=== PATIENT | male | born 1965 | race Caucasian/White ===

== ENCOUNTER 2017-01-10 08:22 | Emergency (ER) | payer MEDICAID, OTHER ==
[~2017-01-10] VITALS: Ht 185.4 cm; Wt 65.8 kg
[2017-01-10 08:22] VITALS: BP 135/68; PULSE 85; RESP 16; TEMP 98.2; O2SAT 100
--- NOTE | 2017-01-10 08:22 | NUR ---
Patient to ER bed 3 to gown for evaluation by ART rn. Side rails up. Report given to me.
--- NOTE | 2017-01-10 08:25 | NUR ---
BRENT Gramajo at bedside examining patient.
--- NOTE | 2017-01-10 08:30 | NUR ---
Patient BIB BLS from home for ETOH, Patient states he drank about 2 pints of whisky last night denies any pain or any other complaints and none noted upon asssessment at this time. Patient repeatedly states "Omg i love you so much, will you me?" No distress noted, pt cooperative.
--- NOTE | 2017-01-10 08:57 | NUR ---
# 20 gauge angiocath placed to R AC. Use of asceptic technique. Opsite placed over site. Blood return noted. Blood for lab drawn from site. Flushed with 10 cc of normal saline. No evidence of infiltration noted. Patient tolerated well.
[2017-01-10] MEDS ORDERED: FOLIC ACID 1 MG, THIAMINE HCL 100 MG, MAGNESIUM SULFATE 1 GM, MVI 10 ML in NACL 0.9% 1,... IV ONE (09:00)
[2017-01-10 09:07] LABS: BASOPHILS % (AUTO) 0.6 % (0.0-2.0); EOSINOPHILS % (AUTO) 0.2 % (0.0-4.0); HEMATOCRIT 50.6 % (36-54); HEMOGLOBIN 16.4 g/dL (14.0-18.0); LYMPHOCYTES # (AUTO) 1.6 K/uL (1.0-5.5); LYMPHOCYTES % (AUTO) 25.3 % (20.5-51.5); MEAN CORPUSCULAR HEMOGLOBIN 28 pg (27-31); MEAN CORPUSCULAR HGB CONC 33 % (32-36); MEAN CORPUSCULAR VOLUME 86 fL (79.0-98.0); MONOCYTES # (AUTO) 0.3 K/uL (0.0-1.0); MONOCYTES % (AUTO) 4.2 % (1.7-9.3); NEUTROPHILS # (AUTO) 4.6 K/uL (1.8-7.7); NEUTROPHILS % (AUTO) 69.7 % (40.0-70.0); PLATELET COUNT (AUTO) 284 K/uL (130-430); RED BLOOD CELL COUNT(AUTO) 5.86 MIL/uL (4.2-6.2); RED CELL DISTRIBUTION WIDTH 14.5 % (9.0-15.0); WHITE BLOOD COUNT (AUTO) 6.5 K/uL (4.8-10.8)
--- NOTE | 2017-01-10 09:07 | NUR ---
called pharmacy for banana bag
--- NOTE | 2017-01-10 09:19 | NUR ---
mother mayte called [phone] per pt request, no answer, left message to call er back
--- NOTE | 2017-01-10 09:22 | NUR ---
called thomas [phone] per pt request, no answer, left message to call back ER.
[2017-01-10 09:28] LABS: ANION GAP 18 (5-15); CALCIUM 8.9 mg/dL (8.4-11.0); CHLORIDE 98 mmol/L (98-107); GLUCOSE 70 mg/dL (70-99); POTASSIUM 3.4 mmol/L (3.5-5.1); SODIUM SERUM 138 mmol/L (136-145); UREA NITROGEN, BLOOD 13 mg/dL (8-21)
[2017-01-10 09:29] LABS: ALANINE AMINOTRANSFERASE 22 U/L (12-78); ALBUMIN 4.7 g/dL (3.4-4.8); ASPARTATE AMINOTRANSFERASE 53 U/L (10-37); CREATININE 0.91 mg/dL (0.55-1.30); GFR AFRICAN AMERICAN 113 mL/min (>90); TOTAL BILIRUBIN 0.8 mg/dL (0.0-1.0); TOTAL PROTEIN, SERUM 8.4 g/dL (6.4-8.3)
[2017-01-10] MEDS ORDERED: KETOROLAC TROMETHAMINE 30 MG VIAL IVP ONE (09:30)
[2017-01-10 09:32] LABS: SALICYLATE 3 mg/dL (3-30)
[2017-01-10 09:39] LABS: ACETAMINOPHEN < 1 ug/mL (1-30)
[2017-01-10] MEDS ORDERED: PANTOPRAZOLE SODIUM 40 MG/VIAL (PROTONIX) IVP ONE (10:00)
--- NOTE | 2017-01-10 10:00 | NUR ---
Spoke to brother francisco regarding pt, per pt verbal consent. Francisco states it is known pt has drinking problem, states to call him when ready for sweet pickle maker
[2017-01-10 10:07] LABS: ALCOHOL, BLOOD 344 mg/dL (<10)
--- NOTE | 2017-01-10 10:35 | NUR ---
Report and care endorsed to Gay VELOZ
--- NOTE | 2017-01-10 10:41 | NUR ---
Patient in bed yelling. All needs addressed. Stable condition.
--- NOTE | 2017-01-10 11:14 | NUR ---
Patient in stable condition, alert and oriented x4.
--- NOTE | 2017-01-10 11:29 | NUR ---
Attempted to assess patient's ability to safely ambulate, patient refused. Dr. Vicki corona.
--- NOTE | 2017-01-10 11:50 | NUR ---
PT AMBULATING IN EDWITH SLOW STEADY GAIT. AWAITING FOR [facility] TO TAKE PT HOME, PT ON CELLPHONE SPEAKING WITH HIS MOM. PT DENIES ANY COMPLAINTS AT THIS TIME
--- NOTE | 2017-01-10 12:17 | NUR ---
PT AMBULATED TO AWAITING [facility] TO TAKE PT HOME NO CHANGES AT THIS TIME. Patient given written and verbal discharge instructions and verbalizes understanding. ER MD discussed with patient the results and treatment provided. Given copies of tests performed in ER. Patient in stable condition. ID arm band removed. IV catheter removed intact and dressing applied, no active bleeding. Rx of NONE given. Patient educated on pain management and to follow up with PMD. Pain Scale 0/10 Opportunity for questions provided and answered.
[2017-01-10 12:19] VITALS: BP 139/68; PULSE 85; RESP 16; TEMP 97.1
[2017-01-20 12:48] VITALS: O2SAT 100
== END 2017-01-10 12:18 | disposition home or self-care (01) ==
LOC: SED 08:22
DX: F10.229 Alcohol dependence with intoxication, unspecified (principal)
CPT/HCPCS: 36415; 80053; 85025; 96365; 96366; 96375; 99285; C9113; G0480; G0481; G0482; J3411; J3475; J3490; J7030; J1885

== ENCOUNTER 2017-06-03 18:26 | Emergency (ER) | payer OTHER, MEDICAID ==
[~2017-06-03] VITALS: Ht 185.4 cm; Wt 63.5 kg
[2017-06-03 18:26] VITALS: BP_SYST 140
[2017-06-03] MEDS ORDERED: DIPHENHYDRAMINE INJ 50 MG/ML VIAL IM ONE (19:30)
[2017-06-03] MEDS ORDERED: HALOPERIDOL LACTATE 5 MG/ML VIAL IM ONE (19:30)
[2017-06-03] MEDS ORDERED: FOLIC ACID 1 MG, THIAMINE HCL 100 MG, MAGNESIUM SULFATE 1 GM, MVI 10 ML in NACL 0.9% 1,... IV ONE (19:45)
[2017-06-03] MEDS ORDERED: MAGNESIUM SULFATE 1 GM/2 ML VIAL ONE (20:02)
[2017-06-03] MEDS ORDERED: MVI 10 ML VIAL IV ONE (20:02)
[2017-06-03] MEDS ORDERED: THIAMINE HCL 100 MG/ML VIAL ONE (20:02)
[2017-06-03] MEDS ORDERED: FOLIC ACID 5 MG/ML VIAL IV ONE (20:02)
[2017-06-03 20:06] LABS: BASOPHILS % (AUTO) 0.5 % (0.0-2.0); EOSINOPHILS % (AUTO) 0.1 % (0.0-4.0); HEMATOCRIT 39.2 % (36-54); LYMPHOCYTES % (AUTO) 16.9 % (20.5-51.5); MEAN CORPUSCULAR HEMOGLOBIN 30 pg (27-31); MEAN CORPUSCULAR HGB CONC 33 % (32-36); MEAN CORPUSCULAR VOLUME 89 fL (79.0-98.0); MONOCYTES # (AUTO) 0.5 K/uL (0.0-1.0); MONOCYTES % (AUTO) 8.8 % (1.7-9.3); NEUTROPHILS # (AUTO) 4.4 K/uL (1.8-7.7); NEUTROPHILS % (AUTO) 73.7 % (40.0-70.0); PLATELET COUNT (AUTO) 182 K/uL (130-430); RED BLOOD CELL COUNT(AUTO) 4.39 MIL/uL (4.2-6.2); RED CELL DISTRIBUTION WIDTH 14.4 % (9.0-15.0); WHITE BLOOD COUNT (AUTO) 5.9 K/uL (4.8-10.8)
[2017-06-03 20:13] LABS: CALCIUM 7.6 mg/dL (8.4-11.0); CREATININE 0.68 mg/dL (0.55-1.30); POTASSIUM 3.6 mmol/L (3.5-5.1)
[2017-06-03 20:16] LABS: PROTHROMBIN TIME 10.7 SECS (9.5-12.5)
[2017-06-03 20:18] LABS: ALBUMIN 3.7 g/dL (3.4-4.8); TOTAL BILIRUBIN 1.1 mg/dL (0.0-1.0); TOTAL PROTEIN, SERUM 6.7 g/dL (6.4-8.3)
[2017-06-03] MEDS ORDERED: PANTOPRAZOLE SODIUM 40 MG TAB PO ONE (23:15)
[2017-06-03 23:59] VITALS: BP_SYST 153
== END 2017-06-03 23:59 | disposition home or self-care (01) ==
LOC: SED 18:26
DX: F10.129 Alcohol abuse with intoxication, unspecified (principal); R03.0 Elevated blood-pressure reading, without diagnosis of hypertension; Z88.1 Allergy status to other antibiotic agents; Z86.73 Personal history of transient ischemic attack (TIA), and cerebral infarction without residual deficits
CPT/HCPCS: 36415; 80053; 85025; 85610; 85730; 96365; 96366; 96372; 99285; J1200; J1630; J3411; J3475; J3490; J7030